=== PATIENT | female | born 1995 | race Caucasian/White ===

== ENCOUNTER 2023-05-15 21:29 | Outpatient (CLI) | payer OTHER, MEDICAID, SELFPAY ==
[2023-05-15 21:51] VITALS: BP 120/67; PULSE 88; PULSE 89; TEMP 36.8; O2SAT 95
--- NOTE | 2023-05-15 21:58 | CRLHL7_ITS ---
For Patients: As a result of the Cures Act, medical imaging exams and procedure reports are released immediately into your electronic medical record. You may view this report before your referring provider. If you have questions, please contact your health care provider. INDICATION: Decreased movement. LIMITED OBSTETRICAL ULTRASOUND FOR BIOPHYSICAL PROFILE Technique: Multiple transabdominal sonographic images of the gravid uterus were performed. Comparison: No previous comparison studies are currently available. Findings: There is a single, live, intrauterine gestation in vertex position. cardiac activity is present with a heart rate of 127 BPM. The placenta is posterior in position and there is no evidence of previa or abruption. Amniotic fluid volume appears subjectively normal and the single deepest pocket measures 4.4 centimeters. No breathing movements were observed. gross body movements, tone, and amniotic fluid are satisfactory. The resultant biophysical profile score is 6 out of 8. IMPRESSION: Single, live, intrauterine gestation in vertex position. Biophysical profile score is 6 out of 8, with points detracted for absent breathing movements. JERSON ALMARAZ MD [employer] Dictated by Raza Almaraz MD @ 05/16/2023 1:36:19 AM Dictated by: Raza Almaraz MD @ 05/16/2023 01:37:23 (Electronically Signed)
--- NOTE | 2023-05-15 23:58 | PC.OBNST ---
NST Note NST Note Start: 05/15/23 21:33 Freq: ONCE Status: Active Protocol: Document 05/15/23 23:57 JULIO (Rec: 05/15/23 23:58 JULIO [id number]) NST Note 9 Para (# of births) 4 EDC 07/07/23 Gestational Age In Weeks & Days 32 Weeks & 3 Days High Risk Factors Diabetes - Gestational Insulin Patient Presented with Complaint(s) of Decreased movement Reactive Yes Appropriate for Gestational Age Yes RN Satinder Avalos RN Date 05/15/23 Reactive Yes Appropriate for Gestational Age Yes HANNAH Peterson RN Date 05/15/23 OB NST charge Yes Complete NST Note via Write Note Yes The provider's electronic signature indicates the NST is reactive/appropriate for gestational age. *Note to provider: If an addendum is required, open the patient's chart and click on the note under the Nurse/Allied Health tab.
--- NOTE | 2023-06-03 14:37 | PC.OBNST ---
NST Note NST Note Start: 05/15/23 21:33 Freq: ONCE Status: Discharge Protocol: Document 05/15/23 23:57 JULIO (Rec: 05/15/23 23:58 JULIO [id number]) NST Note 9 Para (# of births) 4 EDC 07/07/23 Gestational Age In Weeks & Days 32 Weeks & 3 Days High Risk Factors Diabetes - Gestational Insulin Patient Presented with Complaint(s) of Decreased movement Reactive Yes Appropriate for Gestational Age Yes RN Satinder Avalos RN Date 05/15/23 Reactive Yes Appropriate for Gestational Age Yes HANNAH Peterson RN Date 05/15/23 OB NST charge Yes Complete NST Note via Write Note Yes The provider's electronic signature indicates the NST is reactive/appropriate for gestational age. *Note to provider: If an addendum is required, open the patient's chart and click on the note under the Nurse/Allied Health tab.
== END 2023-05-15 23:50 | disposition home or self-care (01) ==
LOC: OB OUT 21:30 → OB 21:30
PROVIDERS: PCP Family Medicine; Visit Provider Surgery
DX: O36.8190 Decreased fetal movements, unspecified trimester, not applicable or unspecified (principal)
CPT/HCPCS: 59025; 76819; 99213

== ENCOUNTER 2024-04-06 00:25 | Emergency (ER) | payer OTHER, MEDICAID, SELFPAY ==
[2024-04-06 00:32] VITALS: BP 109/87; PULSE 95; RESP 20; TEMP 37; O2SAT 97; BMI 31.0
--- NOTE | 2024-04-06 00:39 | ED_ITS ---
HPI - General Adult General Chief complaint: Extremity Pain/Injury, Upper Stated complaint: injured R hand Time Seen by Provider: 04/06/24 00:39 History of Present Illness HPI narrative: Patient c/o right 3rd finger injury. Patient hit her finger on her 's gutierrez at 2345 today. Patient took 600mg ibuprofen just prior to arrival and had ice on for 20 min. Patient denies previous injury to right 3rd finger. CMS intact. Patient states limited ROM. 28-year-old woman presenting to the emergency department with complaint of right 3rd finger pain. This night with a young child crying was trying to wake her to attend. Smacked his gutierrez and had tremendous pain in her finger. She has been icing and taking ibuprofen and still with a lot of pain. No other injuries. Related Data Home Medications ?Medication ?Instructions ?Recorded ?Confirmed doxylamine 10 mg-pyridoxine (vit 1 tab PO QPM PRN nausea/vomiting 05/15/23 04/06/24 B6) 10 mg tablet,delayed release insulin NPH isoph U-100 human 100 3 unit subcut QPM 05/15/23 04/06/24 unit/mL (3 mL) subcutaneous pen (Humulin N NPH U-100 Insulin KwikPen) Allergies Allergy/AdvReac Type Severity Reaction Status Date / Time NKDA Allergy Unknown Uncoded 04/06/24 10:56 Review of Systems Status of ROS: Reports: 6 or more systems reviewed and unremarkable except as noted in History and below [facility] Surgical History (Updated 04/06/24 @ 10:57 by Karen Aldrich ~ [facility]) History of cholecystectomy ?Z90.49 - Acquired absence of other specified parts of digestive tract (ICD- 10) Social History Smoking Status: Never smoker Do you use any of these nicotine containing products: None Second hand tobacco smoke exposure: No How often do you have a drink containing alcohol: never AUDIT-C Alcohol total score: 0 Non-prescribed substance use: denies use service: No Exam Narrative: Exam Narrative: Pleasant. Has been tearful. Clearly very uncomfortable, in intense pain. Eloise thing easily. Examination of the right hand with some swelling more notable of the middle phalanx and distal of the 3rd finger. Due to pain is not extending or flexing. Const: Vital Signs, click to edit/add: Vital Signs - 24 hr 04/06/24 00:32 Temperature 98.6 F Pulse Rate [Left P ulse Oximeter] 95 Respiratory Rate 20 Blood Pressure [Ri ght Upper Arm] 109/87 Pulse Oximetry 97 Oxygen Delivery Me thod Room Air Documenting provider has reviewed patient's vital signs: yes Course Vital Signs Vital signs: Initial Vital Signs Temperature 98.6 F 04/06/24 00:32 Temperature Source Temporal Artery Scan 04/06/24 00:32 Pulse Rate 95 04/06/24 00:32 Pulse Rhythm Regular 04/06/24 00:32 Respiratory Rate 20 04/06/24 00:32 Blood Pressure 109/87 04/06/24 00:32 Blood Pressure Mean 94 04/06/24 00:32 Blood Pressure Position Sitting 04/06/24 00:32 Pulse Oximetry 97 04/06/24 00:32 Oxygen Delivery Method Room Air 04/06/24 00:32 Vital Signs Temperature 98.6 F 04/06/24 00:32 Pulse Rate 95 04/06/24 00:32 Respiratory Rate 20 04/06/24 00:32 Blood Pressure 109/87 04/06/24 00:32 Pulse Oximetry 97 04/06/24 00:32 Oxygen Delivery Method Room Air 04/06/24 00:32 Temperature 98.6 F 04/06/24 00:32 Pulse Rate 95 04/06/24 00:32 Respiratory Rate 20 04/06/24 00:32 Blood Pressure 109/87 04/06/24 00:32 Pulse Oximetry 97 04/06/24 00:32 Oxygen Delivery Method Room Air 04/06/24 00:32 Medical Decision Making MDM Narrative Medical decision making narrative: There could have been an avulsion fracture here simply a contusion which would hurt as well. Other ligamentous disruption? Fracture elsewhere? . Will need x-ray. Due to pain did offer a digital and block; declined Right 3rd finger x-ray independently reviewed by me where there does appear to be an oblique fracture of the base of the distal phalanx with mild displacement with what might be some extension into the distal aspect of the middle p halanx/interphalangeal joint. Looks to be some comminution. Involvement of the distal aspect of the middle phalanx might be artifact? Radiology over-read below. Right long finger 3 views. Comparison: None. Findings/Impression: Acute, comminuted, slightly displaced fracture of the long finger distal phalanx base with likely extension into the distal interphalangeal joint. No involvement of the tuft. Soft tissue swelling about the long finger. No other significant bone or joint abnormality. Applied finger Stax splint. Might need more than this but this should protect it for now. See patient discharge plan for further discussion Please follow-up in a couple weeks to verify healing and consider working on mobility. If primary does orthopedics can follow up with them or otherwise with orthopedics locally phone number [phone]. Wear this finger Stax splint other than when icing most of the time until follow-up. Can take up to 800 mg of ibuprofen or up to 1000 mg of acetaminophen per dose. Can be combined. Elevate for comfort otherwise. Ice 2 - 3 times daily over the next few days. Medical Records Medical records reviewed: Yes I reviewed the patient's medical records Discharge Plan Discharge Clinical Impression: Fracture of distal phalanx of finger Patient Disposition: Home w/ Parent or Adult Condition: Stable Additional Instructions: Please follow-up in a couple weeks to verify healing and consider working on mobility. If primary does orthopedics can follow up with them or otherwise with orthopedics locally phone number [phone]. Wear this finger Stax splint other than when icing most of the time until follow-up. Can take up to 800 mg of ibuprofen or up to 1000 mg of acetaminophen per dose. Can be combined. Elevate for comfort otherwise. Ice 2 - 3 times daily over the next few days. Prescriptions: No Action Humulin N NPH Insulin KwikPen 100 unit/mL (3 mL) insulin pen 3 unit subcut QPM doxylamine-pyridoxine (vit B6) 10-10 mg tablet,delayed release (DR/EC) 1 tab PO QPM PRN (Reason: nausea/vomiting) Follow Up/Referrals: Provider,Not a Local [Primary Care Provider] - Stand Alone Forms: Querydayth Info Instructions
--- NOTE | 2024-04-06 00:49 | CRLHL7_ITS ---
For Patients: As a result of the Century Cures Act, medical imaging exams and procedure reports are released immediately into your electronic medical record. You may view this report before your referring provider. If you have questions, please contact your health care provider. Indication: Finger pain after impact. Technique: Right long finger 3 views. Comparison: None. Findings/Impression: Acute, comminuted, slightly displaced fracture of the long finger distal phalanx base with likely extension into the distal interphalangeal joint. No involvement of the tuft. Soft tissue swelling about the long finger. No other significant bone or joint abnormality. Dictated by Harry Jerome MD @ 04/06/2024 1:10:57 AM (Electronically Signed)
--- OUTSIDE RECORDS SUMMARY | 2024-04-06 01:11 | XMS_ITS | Encounter Summary ---
Author Organization [facility] Address [address] [place] [address] Care Team Providers Care Chip Unloader Name Role Phone No Ref-Primary, Physician Primary Care Provider Joslyn Oreilly MD Unavailable Katy Bravo MD Primary Care Provider [phone] Jessica EwingSW Unavailable Encounter Details Date Type Department Care Team (Late st Contact Info) Description 01/08/2021 External Order Results [facility] [address] [place] [address] Outside, Provider Social History Tobacco Use Types Packs/Day Years Used Date Smoking Tobacco: Never Smokeless Tobacco: Never Alcohol Use Standard Drinks/Week Comments No 0 (1 standard drink = 0.6 oz pur e alcohol) PHQ-2 Answer Date Recorded PHQ-2 Score 0 01/03/2019 Comments No Sex and Gender Information Value Date Recorded Sex Assigned at Female 06/09/2019 8:03 AM BOTTLE FILLER Legal Sex Female 4:50 AM BOTTLE FILLER Gender Identity Female 06/09/2019 8:03 AM BOTTLE FILLER Sexual Orientation Straight 06/09/2019 8: 03 AM BOTTLE FILLER documented as of this encounter Plan of Treatment Not on file documented as of this encounter Procedures Procedure Name Priority Date/Time Associated Diagnosis Comments EXTERNAL LAB RESULTS Routine 01/08/2021 11:27 AM CDT documented in this encounter Results * External Lab Results (01/08/2021 11:27 AM CDT) Scan Lab Results (External) See Scanned Report NON-INTERFACE D (ONBASE SCANS) Comment:HCG Beta Subunit, Qn t, Serum 01/08/2021 11:2 7 AM CDT Narrative ANNA PFT - 11/10/2021 11:28 AM CDT Verified by Shreya Mcginnis on 11/10/2021. us Provider Outside LABORATORY Edited Result - Final ANNA PFT NON-INTERFACED (ONBASE SCANS) documented in this encounter Visit Diagnoses Not on filedocumented in this encounter Care Teams Chip Unloader Relationship Specialty Start Date End Date No Ref-Primary, Physician PCP - General 11/08/12 10/29/21 Katy Bravo MD [address] [place] [address] PCP - General cardiology teacher 10/30/21 Joslyn Oreilly MD [facility] [address], [address] [place] [place] [id number] Assigned OBGYN Provider 05/11/21 Jessica Ewing, [facility] Clinic Head Filter Press Tender Primary Care - CC 06/11/23 documented as of this encounter
--- OUTSIDE RECORDS SUMMARY | 2024-04-06 01:11 | XMS_ITS | Referral Summary ---
Author Organization [facility] Address [address] [place] [address] Care Team Providers Care College Hire Name Role Phone Katy Bravo MD Primary Care Provider [phone] Allergies No known active allergies Medications Vit-Fe Fumarate-FA (PNV PLUS MULTIVITAMIN) 27-1 MG TABS per tablet Take 1 tablet by mouth daily Active NO ACTIVE MEDICATIONS 07/26/19 14 Discontinued( Stopped Prior to Admission or erroneus entry) levothyroxine (SYNTHROID/LEVO THROID) 50 MCG tablet Take 50 mcg by mouth daily 11/11/19 22 Discontinued( Stopped Prior to Admission or erroneus entry) Active Problems Problem Noted Date Diagnosed Date 06/30/2023 Encounter for triage in patient 023 Term 11/10/2021 Indication for care in labor and delivery, antep artum 04/21/2021 Indication for care in labor or delivery 020 Pain in joint involving pelvic region and thigh 08/25/2013 Dysuria 08/25/2013 Muscle spasm 08/25/2013 CARDIOVASCULAR SCREENING; LDL GOAL LESS THAN 160 Recurrent UTI Resolved Problems Problem Noted Date Diagnosed Date Resolved Date Acute cholecystitis 11/08/2012 11/09/19 13 Immunizations Name Administration Dates Next Due Influenza Vaccine >6 months,quad, PF 07/01/2023( ) TDAP (Adacel,Boostrix) 07/17/2015,01/05/2006 Social History Tobacco Use Types Packs/Day Years Used Date Smoking Tobacco: Never Smokeless Tobacco: Never Alcohol Use Standard Drinks/Week Comments No 0 (1 standard drink = 0.6 oz pur e alcohol) PHQ-2 Answer Date Recorded PHQ-2 Score 0 01/03/2019 [place] Depression Scale Answer Date Recorded Last EPDS Total Score Not on file 07/01/2023 The thought of harming myself has occurred to me . Never 07/01/2023 Adolescent Education Answer Date Record ed Getting School Help Needed Not on file 02/19 Comments No Sex and Gender Information Value Date Recorded Sex Assigned at Female 06/09/2019 8:03 AM FACILITY MANAGER HISTOLOGY Legal Sex Female 4:50 AM FACILITY MANAGER HISTOLOGY Gender Identity Female 06/09/2019 8:03 AM FACILITY MANAGER HISTOLOGY Sexual Orientation Straight 06/09/2019 8: 03 AM FACILITY MANAGER HISTOLOGY Last Filed Vital Signs Vital Sign Reading Time Taken Comments Blood Pressure 124/84 07/02/2023 7:52 AM FACILITY MANAGER HISTOLOGY Pulse 80 07/02/2023 7:52 AM FACILITY MANAGER HISTOLOGY Temperature 36.6 C (97.8 F) 07/02/2023 7:52 AM FACILITY MANAGER HISTOLOGY Respiratory Rate 16 07/02/2023 7:52 AM FACILITY MANAGER HISTOLOGY Oxygen Saturation 99% 11/11/2021 6:23 AM CDT Inhaled Oxygen Concentration - - Weight 101.7 kg (224 lb 4.8 oz) 024 10:32 AM FACILITY MANAGER HISTOLOGY Height 172.7 cm (5' 8) 06/30/2023 9:00 AM FACILITY MANAGER HISTOLOGY Body Mass Index 34.1 06/30/2023 9:00 AM FACILITY MANAGER HISTOLOGY Plan of Treatment Not on file Procedures Procedure Name Priority Date/Time Associated Diagnosis Comments HIV 1&2 ANTIBODY (EXTERNAL RESULT) Routine 11/23/2022 from Last 3 Months or Most Recently Relevant to Health Maintenance Results * HIV-1 Antibody (External Result) (11/23/2022) HIV 1&2 Antibody (External) Nonreactive Nonreactive EXTERNAL LAB us Patient Reported LAB - HIM EXTERNAL RESULT Final Result EXTERNAL LAB External Lab from Last 3 Months or Most Recently Relevant to Health Maintenance Insurance [employer] [place] [employer] [place] Advance Directives For more information, please contact: [phone] * Full Code (Latest Code Status on File) Date Activated Date Inactivated Comments 06/30/2023 8:40 AM 06/30/2023 3:40 PM All basic an d advanced life-sustaining interventions are performed as appropriate Question Answer Comments Code status determined by: Discussion with patie nt/ legal decision maker * Full Code Date Activated Date Inactivated Comments 11/10/2021 7:55 AM 11/11/2021 7:55 PM All basic an d advanced life-sustaining interventions are performed as appropriate Question Answer Comments Code status determined by: Discussion with patie nt/ legal decision maker * Full Code Date Activated Date Inactivated Comments 11/08/2012 5:18 PM 11/09/2012 12:36 PM * Full Code Date Activated Date Inactivated Comments 11/08/2012 8:25 AM 11/08/2012 5:18 PM Care Teams College Hire Relationship Specialty Start Date End Date Katy Bravo MD [address] [place] [address] [facility] - General paver 10/30/21
--- OUTSIDE RECORDS SUMMARY | 2024-04-06 01:11 | XMS_ITS | Clinical Summary ---
Author Organization [facility] Address [place], [place] [address] Care Team Providers Care Directory Carrier Name Role Phone Clinic, [facility] Primary Care Pr ovider Allergies Active Allergy Reactions Criticality Noted Date Comments Blood-Group Specific Substance Other - Describe In Comment Field 12/29/2018 Patient has a probable passive anti-D antibody. Blood products may be delayed. Draw patient 24 hours prior to transfusion. Draw one red top and two purple top tubes for all type and screen orders. Medications Medication Sig Dispensed Refills Start Date End Date Status 25/iron fum/folic/dha (-1 ORAL) Take by mouth. Act anthony ondansetron (ZOFRAN ODT) 8 mg disintegrating tabletIndications:Non-i ntractable vomiting with nausea, unspecified vomiting type Place 1 tablet on the tongue 2 times daily. 30 tablet 1 04/14/2020 Active Active Problems No known active problems Immunizations Name Administration Dates Next Due Human Papilloma Virus Vaccine 12/02/2009 MMR 09/16/2015 Meningococcal Vaccine (Menactra) 12/02/2009 Tdap 07/17/2015,01/05/2006 Family History Medical History Relation Name Comments Cancer Maternal Grandfather Relation Name Status Comments Brother 1 Alive Brother 2 Alive Father Alive Maternal Grandfather Maternal Grandmother Alive Mother Alive Paternal Grandfather Paternal Grandmother Sister 1 Alive Sister 2 Alive Social History Tobacco Use Types Packs/Day Years Used Date Smoking Tobacco: Never Smokeless Tobacco: Never Tobacco Cessation:Counseling Given: Yes Alcohol Use Standard Drinks/Week Comments No 0 (1 standard drink = 0.6 oz pur e alcohol) Humiliation, Afraid, Rape, and Kick questionnair e Answer Date Recorded Fear of Current or Ex-Partner No Emotionally Abused No 12/19/2018 Physically Abused No 12/19/2018 Sexually Abused No 12/19/2018 PHQ-2 Answer Date Recorded PHQ-2 Score 2 12/28/2018 [facility] - Occupational Stress Questionnaire Answer Date Recorded Feeling of Stress Very much 12/19/2018 Exercise Vital Sign Answer Date Recorde d Days of Exercise per Week 5 days 2018 Minutes of Exercise per Session 30 min 12/19/2018 Sex and Gender Information Value Date Recorded Sex Assigned at Not on file Gender Identity Not on file Sexual Orientation Not on file Obstetrics History Para Term AB IAB SAB Ectopic Multiple Livin g Live Births 5 2 2 2 2 2 2 Date Outcome GA Total Labor Labor//3rd Weight Sex Type Anes PTL Maty A1 A5 Name Clin Term SAB SAB 016 Term 38w 0d F Vag IV Meds Livin g Scarle tt Complications:None Delivery Location:[place], [place] Last Filed Vital Signs Vital Sign Reading Time Taken Comments Blood Pressure 118/72 01/18/2019 1:40 PM CDT Pulse 88 01/18/2019 1:40 PM CDT Temperature 36.3 C (97.3 F) 01/13/2019 10:35 PM CDT Respiratory Rate 18 01/18/2019 1:40 PM CDT Oxygen Saturation 97% 01/13/2019 10:35 PM CDT Inhaled Oxygen Concentration - - Weight 87.8 kg (193 lb 8 oz) 01/13/2019 10:35 PM CDT Height 172.7 cm (5' 8) 01/13/2019 10:35 PM CDT Body Mass Index 29.42 01/13/2019 10:35 PM CDT Plan of Treatment Health Maintenance Due Date Last Done Comments BMI (ht and wt on same day) for age 18+ 12/29/2019 12/28/2018, 11/04/2018 Depression screening for age 12+ 12/30/2019 12/29/2018, 12/29/2018, 12/28/2018, Additional history exists Pap test for age 21-65 10/04/2021 9 (Completed outside of [facility]) COVID-19 vaccine series (2023-25 season) 2024 Influenza for age 9-49 01/16/2024 Tetanus booster 07/16/2025 07/17/2015, 01/05/2006 Tdap Completed 07/17/2015, 01/05/2006 HIV for age 15-65 Completed 12/29/2018 Hepatitis C screening for age 18-79 Completed 12/29/2018 Pneumococcal series for age 6-64 Aged Out No longer eligible based on patient's age to complete this topic Procedures Procedure Name Priority Date/Time Associated Diagnosis Comments ANTI HIV 1/2 Routine 12/29/2018 8:07 AM CDT , unspecified gestational age ANTI HCV Routine 12/29/2018 8:07 AM CDT , unspecified gestational age from Last 3 Months or Most Recently Relevant to Health Maintenance Results * ANTI HCV (12/29/2018 8:07 AM CDT) HEPATITIS C ANTIBODY Non-React anthony Non-React anthony 12/29/2018 6:33 PM CDT [facility] Comment:Antibodies to HCV no t detected; does not exclude the possibility of exposure to HCV. Blood BLOOD SPECIMEN / Unknown Venipuncture / Unknown 12/29/2018 8:07 AM CDT 12/29/2018 8:09 AM CDT Zee Blandon MD [facility] [address] [place] [address], * ANTI HIV 1/2 (12/29/2018 8:07 AM CDT) HIV-1/HIV-2 ANTIBODY Non-Reacti ve Non-Reacti ve 12/29/2018 5:49 PM CDT [facility] Comment:HIV-1 p24 and HIV-1/ HIV-2 Ab not detected. Blood BLOOD SPECIMEN / Unknown Venipuncture / Unknown 12/29/2018 8:07 AM CDT 12/29/2018 8:09 AM CDT Zee Blandon MD [facility] [address] [place] [address], [place] from Last 3 Months or Most Recently Relevant to Health Maintenance Advance Directives * Full Code (Latest Code Status on File) Date Activated Date Inactivated Comments 07/11/2017 8:23 PM 07/12/2017 7:41 AM * Full Code Date Activated Date Inactivated Comments 06/08/2017 5:58 PM 06/08/2017 11:34 PM Care Teams Directory Carrier Relationship Specialty Start Date End Date Clinic, [facility] [address] [place] [address] PCP - General 12/27/23
--- OUTSIDE RECORDS SUMMARY | 2024-04-06 01:11 | XMS_ITS | Encounter Summary ---
Author Organization [facility] Address [address] [place] [address] Care Team Providers Care Coin Box Inspector Name Role Phone No Ref-Primary, Physician Primary Care Provider Sheila Do MD Unavailable Unavaila Joslyn Marino MD Unavailable Katy Bravo MD Primary Care Provider [phone] Jessica Ewing Unavailable Reason for Visit * Reason Onset Date Comments Appointment 12/19/2018 Appointment need ed for new visit Encounter Details Date Type Department Care Team (Late st Contact Info) Description 12/19/2018 Telephone [facility] [place] [address] [place] [phone] Kemal Ziegler MD [address] [place] [address] Appointment (Appointment needed for new visit ) Social History Tobacco Use Types Packs/Day Years Used Date Smoking Tobacco: Never Smokeless Tobacco: Never Alcohol Use Standard Drinks/Week Comments No 0 (1 standard drink = 0.6 oz pur e alcohol) Comments Yes Sex and Gender Information Value Date Recorded Sex Assigned at Female 06/09/2019 8:03 AM SCHEDULING ANALYST Legal Sex Female 4:50 AM SCHEDULING ANALYST Gender Identity Female 06/09/2019 8:03 AM SCHEDULING ANALYST Sexual Orientation Straight 06/09/2019 8: 03 AM SCHEDULING ANALYST documented as of this encounter Miscellaneous Notes * Telephone Encounter - Eliseo Byers - 12/19/2018 6:08 PM CDT Reason for call: Other Patient called regarding (reason for call): appointment Additional comments: Patient is requesting a new visit for at the [facility] to be seen with either OB Kemal Ziegler or OB Chin Dang . Patient has already been seen at another clinic for her confirmation. Phone number to reach patient: Home number on file [phone] (home) Best Time: ANYTIME Can we leave a detailed message on this number? YES documented in this encounter Plan of Treatment Not on file documented as of this encounter Visit Diagnoses Not on filedocumented in this encounter Care Teams Coin Box Inspector Relationship Specialty Start Date End Date No Ref-Primary, Physician PCP - General 11/08/12 10/29/21 Katy Bravo MD [address] [place] [address] PCP - General typewriter operator automatic 10/30/21 Sheila Do MD Assigned OBGYN Provider 03/08/20 12/14/20 Joslyn Oreilly MD [facility] [address], [address] [place] [id number] Assigned OBGYN Provider 05/11/21 Jessica Ewing LICSW [facility] Agricultural Produce Sorter Primary Care - CC 06/11/23 documented as of this encounter
--- OUTSIDE RECORDS SUMMARY | 2024-04-06 01:11 | XMS_ITS | Clinical Summary ---
Author Organization [facility] Address [address] [place] [address] Care Team Providers Care Legal Word Processor Name Role Phone Katherine Meadows MD Primary Care Provider Source Comments You are receiving this document as you are listed as the primary care provider,follow-up provider, or the patient has been referred to you for consultation.This is in compliance with the Medicare and[facility] EHR Incentive Program,which states Providers who transition their patient to another setting of careor provider of care or refers their patient to another provider of care shouldprovide summary care record for each transition of care or referral. [facility] Allergies No known active allergies Medications Medication Sig Dispensed Refills Start Date End Date Status tretinoin (AKA RETIN-A) 0.025 % creamIndications :Acne vulgaris Apply 1 Application topically nightly. Apply to cleansed and dried skin. 45 g 1 08/23/2014 Active Clindamycin Phos & Cleanser (CLINDACIN ETZ) 1 % KITIndications:A cne, unspecified acne type Apply 1 Application topically every morning. 60 each 1 09/14/2014 Active sertraline (AKA ZOLOFT) 100 MG tabletIndication s:Depression, major, recurrent, moderate (HRC),GARY (generalized anxiety disorder) (HRC) Take 1.5 tablets by mouth daily (every 24 hours). Indications: ANXIETY WITH DEPRESSION 135 tablet 3 11/10/2014 Active vitamin-ferrous fumarate-folic acid (PRENATALPLUS) 27-1 MG tablet Take 1 Tablet by mouth daily. Active clindamycin (CLINDAGEL) 1 % gelIndications:t oo greasy in texture Apply 1 Application topically every morning. 60 g 1 08/23/2014 5 Discontinued( Change Existing Dose/Freq) Active Problems Problem Noted Date Diagnosed Date care, subsequent 10/06/2018 Blood type, Rh negative 10/06/2018 Overview (10/06/2018): Had Rhogam 09/26/18 at [facility] due to early spotting Hx of macrosomia in infant i n prior , currently 10/06/2018 Overview (10/06/2018): Last baby weighed 10-14 at term; patient reports no shoulder issues Depression, major, recurrent, moderate 5 GARY (generalized anxiety disorder) 09/15/2014 Terminal insomnia 09/15/2014 Encounters Date Type Department Care Team Description 02/07/2024 Notes/Orders [facility] [address] [place] [address] Richmond Love MD Routine medical exam 02/07/2024 Notes/Orders [facility] [address] [place] [address] Richmond Love MD Routine medical exam from Last 3 Months Immunizations Name Administration Dates Next Due 4vHPV (Gardasil) 12/02/2009,12/02/2009 Hepatitis B - Surface Antibody Positive 10/07/19 19 MCV4 (Menactra) 12/02/2009,12/02/2009 Positive Rubella Titer 10/06/2018 TDAP (BOOSTRIX) 01/05/2006 Tdap 01/05/2006 Family History Medical History Relation Name Comments Depression Father High Cholesterol Father Diabetes Mother Cancer, Breast Negative Family History Cancer, Colon Negative Family History Relation Name Status Comments Father Alive Mother Alive Brother Alive Maternal Grandfather Maternal Grandmother Alive Paternal Grandfather Paternal Grandmother Sister 1 Alive Sister 2 Alive Sister 3 Alive Social History Tobacco Use Types Packs/Day Years Used Date Smoking Tobacco: Never Smokeless Tobacco: Never Alcohol Use Standard Drinks/Week Comments No 0 (1 standard drink = 0.6 oz pur e alcohol) Sex and Gender Information Value Date Recorded Sex Assigned at Not on file Gender Identity Not on file Sexual Orientation Not on file Last Filed Vital Signs Vital Sign Reading Time Taken Comments Blood Pressure 97/63 10/18/2018 1:50 PM CDT Pulse 80 10/18/2018 1:50 PM CDT Temperature 36.9 C (98.4 F) 11/18/2012 2:22 PM CDT Respiratory Rate - - Oxygen Saturation - - Inhaled Oxygen Concentration - - Weight 86.2 kg (190 lb) 10/18/2018 1:50 PM CDT Height 172.7 cm (5' 8) 10/06/2018 9:17 AM CDT Body Mass Index 28.89 10/06/2018 9:17 AM CDT Plan of Treatment Health Maintenance Due Date Last Done Comments Hep C Screening (Preventive Services) 1993 HPV Vaccine (2 - 3-dose series) 12/30/2009 12/02/2009, 12/02/2009 Adult Preventive Visit 07/24/2011 DTaP/Tdap/Td (2 - Tdap) 01/06/2016 01/06/20 06, 01/05/2006 Cervical Cancer Screening 10/06/20212018, 08/23/2014 COVID-19 Vaccine (2023-2 5 season) 2024 Influenza (#1) 2024 Zoster/Shingles (1 of 2) 07/24/2043 MCV4 Completed 12/02/2009, 12/02/2009 HIV Screening (Preventive Services) Completed 10/06/2018 HepA Aged Out No longer eligi ble based on patient's age to complete this topic Hib Aged Out No longer eligi ble based on patient's age to complete this topic IPV (Polio) Aged Out No longer eligi ble based on patient's age to complete this topic RSV Aged Out No longer eligi ble based on patient's age to complete this topic Pneumococcal Aged Out No longer eligi ble based on patient's age to complete this topic Procedures Procedure Name Priority Date/Time Associated Diagnosis Comments PAP TEST Routine 10/06/2018 11:18 AM CDT Screening for malignant neoplasm of cervix HIV 1/2 AG/AB 4TH GEN Routine 10/06/2018 10:21 AM CDT care of multigravida, antepartum from Last 3 Months or Most Recently Relevant to Health Maintenance Results * PAP Test (10/06/2018 11:18 AM CDT) Case Report Pap Case: [id number] Authorizing Provider: Teja Cartwright APRN, Collected: 10/06/2018 11:18 AM [place] Ordering Location: [place] [facility] and Received: 10/06/2018 11:55 AM [facility] Screen: Yissel Mathur Specimen: Pap Test, Routine, Cervix/Endocervix 10/18/2018 10:46 AM [facility] Pap Specimen Adequacy Satisfactory for evaluation, endocervical/yan sformation zone component present. 10/18/2018 10:46 AM [facility] Pap Interpretation Negative for intraepithelial lesion or malignancy (NILM). 10/18/2018 10:46 AM [facility] Gross Description The specimen is received in SurePath fixative and properly labeled. 1 Pap-stained SurePath slide is prepared. 10/18/2018 10:46 AM [facility] Pap Disclaimer The Pap test is a screening test designed to aid in the detection of cervical cancer and its precursor lesions. It is not a diagnostic procedure and should not be used as the sole means of detecting cervical cancer. Both false-positive and false-negative reports may occur. 10/18/2018 10:46 AM [facility] Embedded Images 10:46 AM [facility] Other Specimen Type ENTIRE ENDOCERVIX / Unknown 10/06/2018 11:18 AM CDT 10/06/2018 11:55 AM CDT Comment:LMP: Patient's last menstrual period was 08/28/2018 (approximate). Teja Cartwright APRN, [place] [address], [facility] [phone] * HIV 1/2 AG/AB 4TH GEN (10/06/2018 10:21 AM CDT) HIV 1/2 Antigen/Anti body (4th generation) Negative (Non Reactive) Negative (Non Reactive) 10/06/2018 3:43 PM CDT [facility] Comment:HIV-1 p24 Antigen an d HIV-1/HIV-2 Antibody not detected Blood Venipuncture / Unknown 10/06/2018 10:21 AM CDT 10/06/2018 10:21 AM CDT Teja Cartwright APRN, CNM LAB_1 [facility] [address] [phone] from Last 3 Months or Most Recently Relevant to Health Maintenance Care Teams Legal Word Processor Relationship Specialty [place] [address] [address] [place] [address] [facility] - General 08/10/13
--- OUTSIDE RECORDS SUMMARY | 2024-04-06 01:11 | XMS_ITS | Clinical Summary ---
Author Organization [facility] [employer] [facility] Address [address] [place] [address] [address] [place] [address] Care Team Providers Care Book Sewer Name Role Phone Provider, No Attributed RESOURCE Unavailable Unavailable Allergies No known active allergies Medications Vit-Fe Fumarate-FA ( VITAMIN, WITH FOLIC ACID 0.8 MG,) 27-0.8 MG TABS Take 1 tablet by mouth Active fluconazole (DIFLUCAN) 150 mg tabletIndicatio ns:Yeast infection Take 1 tablet (150 mg) by mouth 1 time per day 1 tablet 02/15/2017 Active doxylamine-pyri doxine (DICLEGIS) 10-10 MG tablet (delayed release)Indicat ions:Nausea/vom iting in ([facility]) 2 tablets po at bedtime for 15 days, then add 1 po in morning, 1 po at noon if needed 120 tablet 03/12/2017 Active Active Problems Problem Noted Date Diagnosed Date Supervision of normal first , antepartu m ([facility]) 01/11/2017 Nausea/vomiting in ([facility]) 7 Miscarriage ([facility]) 10/26/2016 Rh negative state in antepartum period ([facility]) 10/26/2016 Labor and delivery, indication for care ([facility] ) 09/14/2015 Overview (09/17/2015): Admission 09/14/2015 Magali Webb is a 20yr old female T0 S0 E0 M0 L0 Estimated Date of Delivery: 5/13/16 GA: 38w2d. Admitted for SROM. GBS: negative. Cytotec 50 mcg at 8 pm. Pt progressed to of female at 0250 on September 15, 2015. Wt = 7 lb 14 oz. Apgars = 8 and 9. Bilateral periurethral lacerations without repair. Left vaginal laceration repaired with 3-0 vicryl interrupted sutures for hemostasis and approximation. EBL = 400 cc. . 09/16/2015- PPD #1- Doing well. Baby nursing well when awake. Continue routine care. 09/17/2015- PPD #2- Doing well. Nursing going well. Excited to go home today. Discharge instructions reviewed. RTC 2 weeks. Resolved Problems Problem Noted Date Diagnosed Date Resolved Date Hyperemesis affecting pregna ncy, antepartum ([facility]) 02/19/2015 10/26/2016 Overview (02/19/2015): She was in triage for fluid hydration twice last week and again today. She does well for about two days at home and then gets worse. Encounter for care in first trimester of first ([facility]) 02/13/2015 0 10/26/2016 Immunizations Immunization Administration Dates Next Due FLU VACCINE SINGLE DOSE 0.5mL(6MO+Fluzone/Flulaval/Fluarix,3YR+Afluria) 04/02/2015 MMR 09/16/2015 TDAP 07/17/2015 Family History Medical History Relation Comments Other Cousin lupus Hyperlipidemia Father Mental Illness Father Bi Polar Other Maternal Aunt 1 lupus Other Maternal Aunt 2 lupus Not otherwise listed - Cancer Maternal Aunt 3 me sothemioma Loss Maternal Aunt 4 Chronic Obstructive Pulmonary Disease Maternal G randfather Not otherwise listed - Cancer Maternal Grandfath er lung Diabetes Mother type 2 Loss Mother Thyroid Mother Not otherwise listed - Cancer Paternal Uncle 1 l she and bones Other Paternal Uncle 2 had shock ther apy Not otherwise listed - Cancer Paternal Uncle 3 Relation Status Comments Brother Alive Cousin Daughter Alive Father Alive Maternal Aunt 1 Maternal Aunt 2 Maternal Aunt 3 Maternal Aunt 4 Maternal Grandfather Mother Alive Paternal Uncle 1 Paternal Uncle 2 Paternal Uncle 3 Sister 1 Alive Sister 2 Alive Sister 3 Alive Social History Tobacco Use Types Packs/Day Years Used Date Smoking Tobacco: Never Smokeless Tobacco: Never Alcohol Use Standard Drinks/Week Comments No 0 (1 standard drink = 0.6 oz pur e alcohol) Sexually Active Control Partners Comments Yes None Male Comments No Sex and Gender Information Value Date Recorded Sex Assigned at Not on file Legal Sex Female 12:44 PM CDT Gender Identity Not on file Sexual Orientation Not on file Last Filed Vital Signs Vital Sign Reading Time Taken Comments Blood Pressure 98/62 02/12/2017 10:23 AM CDT Pulse 70 02/12/2017 10:23 AM CDT Temperature 36.9 C (98.4 F) 02/12/2017 10:23 AM CDT Respiratory Rate 16 02/12/2017 10:23 AM CDT Oxygen Saturation 97% 10/24/2016 4:30 PM CDT Inhaled Oxygen Concentration - - Weight 79.8 kg (176 lb) 02/12/2017 10:23 AM CDT Height 172.7 cm (5' 8) 09/14/2015 6:40 PM CDT Body Mass Index 26.76 09/14/2015 6:40 PM CDT Plan of Treatment Health Maintenance Due Date Last Done Comments Hepatitis C Screening 1993 Hepatitis B Vaccine (1 of 3 - 19+ 3-dose series) 2012 Lipid Screening 2014 Pap Smear 02/13/2020 02/12/2017 HPV 27-45yr Vaccine (1 - 3-DOSE SERIES) 2020 Covid-19 Vaccine (1 - 2023- season) 2024 Influenza Vaccine (#1) 2024 04/02/2015 TDAP/TD VACCINE (2 - Td or Tdap) 07/16/2025 07/17/2015 HIV One Time Screening Ages 15-65 Completed 02/12/2017, 02/12/2017, 03/19/2015, Additional history exists Pneumococcal Vaccine (0-5yr; and At-risk 6-64 yr) Aged Out No longer eligible based on patient's age to complete this topic Procedures Procedure Name Priority Date/Time Associated Diagnosis Comments OBSTETRICS PANEL 11 Routine 02/12/2017 1 1:12 AM CDT screening encounter PAP SMEAR (NONMEDICARE) Routine 02/12/2017 12:00 AM CDT Cervical cancer screening from Last 3 Months or Most Recently Relevant to Health Maintenance Results * PAP SMEAR (NONMEDICARE) (02/12/2017 12:00 AM CDT) Not Applicable 02/12/2017 02/15/2017 Narrative LAB - 02/18/2017 12:51 PM CDT Patient Name: MAGALI WEBB Physician(s): GABBY WARREN MD Collected: 02/12/2017 Received: 02/15/2017 Reported: 02/18/2017 CYTOPATHOLOGY PLASTIC JIG AND FIXTURE BUILDER REPORT INTERPRETATION Pap Smear VCE - Imaged ThinPrep: NEGATIVE FOR INTRAEPITHELIAL LESION OR MALIGNANCY FUNGAL ORGANISMS CONSISTENT WITH KAY SPECIES PRESENT (CLINICAL CORRELATION SUGGESTED). MARKED ACUTE INFLAMMATION (AND ASSOCIATED CHANGES). ENDOCERVICAL CELLS/COMPONENT PRESENT. SATISFACTORY SPECIMEN FOR EVALUATION. Electronically Signed Out By kks/02/18/2017 [facility](AS[facility]) The Pap test is a screening procedure and, as such, is subject to both false positive and false negative results as evidenced by published data. It is not a diagnostic test and results should be interpreted in the context of the patient's history and other clinical findings. Obtaining periodic Pap tests may help to minimize the consequences of any false negatives that may occur. [facility] [id number] [address] [place] [address] Copy To: SPECIMEN(S) RECEIVED: Pap Smear VCE - Imaged ThinPrep CLINICAL HISTORY: Date of Last Menstrual Period: 11/24/2016 Menstrual History: : OTHER Napoleon Warren MD PATHOLOGY Edited Resul t - Final LAB from Last 3 Months or Most Recently Relevant to Health Maintenance Advance Directives For more information, please contact: [phone] * Full Code (Latest Code Status on File) Date Activated Date Inactivated Comments 09/14/2015 7:15 PM 09/17/2015 5:28 PM * Full Code Date Activated Date Inactivated Comments 02/19/2015 3:50 PM 02/20/2015 5:10 AM Care Teams Book Sewer Relationship Specialty Start Date End Date Provider, No Attributed, RESOURCE [address] PCP - Attributed Provider 12/25/19
--- OUTSIDE RECORDS SUMMARY | 2024-04-06 01:11 | XMS_ITS | Encounter Summary ---
Author Organization On license of [facility] Address [address] [place] [address] Care Team Providers Care Loom Operator Apprentice Name Role Phone Katherine Meadows MD Primary Care Provider Encounter Details Date Type Department Care Team (Late st Contact Info) Description 02/07/2024 Notes/Orders [facility] [address] [place] [address] Richmond Love MD [address] [place] [id number] Routine medical exam Social History Tobacco Use Types Packs/Day Years Used Date Smoking Tobacco: Never Smokeless Tobacco: Never Alcohol Use Standard Drinks/Week Comments No 0 (1 standard drink = 0.6 oz pur e alcohol) Sex and Gender Information Value Date Recorded Sex Assigned at Not on file Gender Identity Not on file Sexual Orientation Not on file documented as of this encounter Plan of Treatment Scheduled Orders Name Type Priority Associated Diagnoses Orde r Schedule DNA Analysis Discrete Sequence Variation Panel (Blood) (Initial) Lab Routine Routine medical exam Expected: 02/07/2024 (Approximate), Expires: 08/06/2024 documented as of this encounter Visit Diagnoses Diagnosis Routine medical exam Routine general medical examination at a health care facility documented in this encounter Care Teams Loom Operator Apprentice Relationship Specialty Start [place] [address] [address] [place] [address] PCP - General 08/10/13 documented as of this encounter
--- OUTSIDE RECORDS SUMMARY | 2024-04-06 01:11 | XMS_ITS | Clinical Summary ---
Author Organization [facility] Address [address] [place] [address] Care Team Providers Care Epic Specialist Name Role Phone Katy Bravo MD Primary Care Provider [phone] Allergies No known active allergies Medications Vit-Fe [...] months,quad, PF 07/01/2023( ) TDAP (Adacel,Boostrix) 07/17/2015,01/05/2006 Family History Medical History Relation Comments Lipids Father Depression Mother Diabetes Mother Relation Status Comments Brother Alive Father Alive Maternal Grandfather Alive Maternal Grandmother Alive Mother Alive Paternal Grandfather Paternal Grandmother Alive Sister 1 Alive Sister 2 Alive Sister 3 Alive Social History Tobacco Use Types Packs/Day Years Used Date Smoking Tobacco: Never Smokeless Tobacco: Never Alcohol Use Standard Drinks/Week Comments No 0 (1 standard drink = 0.6 oz pur e alcohol) PHQ-2 Answer Date Recorded PHQ-2 Score 0 01/03/2019 Hamilton Depression Scale Answer Date Recorded Last EPDS Total Score Not on file 07/01/2023 The thought of harming myself has occurred to me . Never 07/01/2023 Adolescent Education Answer Date Record ed Getting School Help Needed Not on file 02/19 Comments No Sex and Gender Information Value Date Recorded Sex Assigned at Female 06/09/2019 8:03 AM LUMBER HACKER Legal Sex Female 4:50 AM LUMBER HACKER Gender Identity Female 06/09/2019 8:03 AM LUMBER HACKER Sexual Orientation Straight 06/09/2019 8: 03 AM LUMBER HACKER Last Filed Vital Signs Vital Sign Reading Time Taken Comments Blood Pressure 124/84 07/02/2023 7:52 AM LUMBER HACKER Pulse 80 07/02/2023 7:52 AM LUMBER HACKER Temperature 36.6 C (97.8 F) 07/02/2023 7:52 AM LUMBER HACKER Respiratory Rate 16 07/02/2023 7:52 AM LUMBER HACKER Oxygen Saturation 99% 11/11/2021 6:23 AM CDT Inhaled Oxygen Concentration - - Weight 101.7 kg (224 lb 4.8 oz) 024 10:32 AM LUMBER HACKER Height 172.7 cm (5' 8) 06/30/2023 9:00 AM LUMBER HACKER Body Mass Index 34.1 06/30/2023 9:00 AM LUMBER HACKER Plan of Treatment Health Maintenance Due Date Last Done Comments ADVANCE CARE PLANNING 1993 ANNUAL REVIEW OF HM ORDERS 1993 YEARLY PREVENTIVE VISIT 1993 HPV IMMUNIZATION (2 - 3-dose series) 12/30/2009 12/02/2009 HEPATITIS C SCREENING 07/24/2011 HEPATITIS B IMMUNIZATION (1 of 3 - 19+ 3-dose series) 2012 PAP 10/06/2021 10/06/2018 PHQ-2 (once per calendar year) 2023 01/03/2019 COVID-19 Vaccine (3 - 2023-2 5 season) 2024 02/27/2021, 01/25/2021 INFLUENZA VACCINE (#1) 2024 04/02/2015 DTAP/TDAP/TD IMMUNIZATION (3 - Td or Tdap) 07/16/2025 07/17/2015, 01/05/2006 RSV VACCINE (1 - 1-dose 75+ series) 2068 MENINGITIS IMMUNIZATION Completed 12/02/2009 HIV SCREENING Completed 11/23/2022, 11/10/2021 Pneumococcal Vaccine: Pediatrics (0 to 5 Years) and At-Risk Patients (6 to 64 Years) Aged Out No longer eligible b ased on patient's age to complete this topic RSV MONOCLONAL ANTIBODY Aged Out No l onger eligible based on patient's age to complete [...] Most Recently Relevant to Health Maintenance Insurance [employer] [place]ID [place] [facility] MEDICAID [place] Advance Directives For more information, please contact: [phone] * Full Code (Latest Code Status on [...] 8:25 AM 11/08/2012 5:18 PM Care Teams Epic Specialist Relationship Specialty Start Date End Date Katy Bravo MD [address] [place] [address] PCP - General professor of family medicine 10/30/21
--- OUTSIDE RECORDS SUMMARY | 2024-04-06 01:11 | XMS_ITS | Encounter Summary ---
Author Organization [facility] Address [address] [place] [address] Care Team Providers Care Bridge Welder Name Role Phone Katherine Meadows MD Primary Care Provider Encounter Details Date Type Department Care Team (Late st Contact Info) Description 02/07/2024 Notes/Orders [facility] [address] [place] [address] Richmond Love MD [address] [place] [address] Routine medical exam Social History Tobacco Use [...] facility documented in this encounter Care Teams Bridge Welder Relationship Specialty [place] [address] [place] [address] PCP - General 08/10/13 documented as of this encounter
== END 2024-04-06 01:29 | disposition home or self-care (01) ==
PROVIDERS: Emergency Provider Family Medicine
DX: S62.662A Nondisplaced fracture of distal phalanx of right middle finger, initial encounter for closed fracture (principal); W22.8XXA Striking against or struck by other objects, initial encounter
CPT/HCPCS: 29130; 73140; 99283; 99284

== ENCOUNTER 2024-04-07 14:12 | Outpatient (RCR) | payer OTHER, MEDICAID, SELFPAY ==
--- NOTE | 2024-04-07 16:49 | OT.OPOE ---
OT Outpatient Ortho Eval OT Outpatient Ortho Eval* Start: 04/07/24 16:17 Freq: Status: Active Protocol: Document 04/07/24 16:18 LCN (Rec: 04/07/24 16:46 LCN [id number]) E-signed By Luz Marina Kramer, OTR/L, CLT OT OP Ortho Eval Details Complexity Complexity Low Insurance Information Insurance Information [facility],Medicaid Outpatient History/Precautions Current Condition/Medical Diagnosis Referring Provider Antonio Curtis Medical Diagnoses R middle finger, acute displaced fracture of distal phlaanx of R middle finger Treatment Diagnosis edema , pain R middle finger Date of Onset 04/05/24 Other Conditions Pt healthy, no known medications Medical/Functional History Medical History Reviewed Yes: Ortho notes reviewed Prior Level of Function/Mobility Pt lives locally with her supportive , who works in [employer]. She is at home with their 5 children (aged 8, 6.4.2 and 9 months). 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 Social History Critical Job Demands Pull,Lift,Overhead Reach Other Critical Job Demands (Home with her children) Ortho Subjective Subjective Subjective Magali Jackie Webb is an active 28 y/o female who accidently knocked into her 's leg while sleeping and had immediate sharp pain. Found to have acute displaced fracture of distal phalanx of R middle finger and was splinted with her appt with Dr Jhoana Curtis 04/06/24 and sent to OT for custom orthoplast splinting to support better protection of her hand as it heals; she has very active young children and she has already bumped her DIP tip 3 x since the last clinic visit. Pain Assessment Pain Pain Yes Pain Comments 5/10 R middle finger Range of Motion and Strength Hand/Finger/Thumb Range of Motion and Strength Hand/Finger/Thumb Range of Motion and R MF MCP 10 to 75 ( edema), Strength PIP to 80 of 110. R IF, RF make contact tip to palm, restricted by digit edema. TH WNL. Wrist WNL. EDEMA moderate with blotchy purple bruising on MF, skin distended, loss of knuckle creases. RF and IF linda along digit shat with stiffness. SPLINTING-- OTR [employer] CUSTOM ORTHOPLAST HAND/WEB BASED SPLINT WITH RF, MF STAFFORD, WITH MCP AT 45, DIP/PIP FULLY EXTENDED, ADDED CLAM SHELL OVER THE FINGER STAFFORD FOR EXTRA PROTECTION. SECURED WITH VELCRO. OT Problems Problems Problems Decreased Strength,Decreased Range of Motion,Pain Assessment Assessment Assessment Jackie is having R hand stiffness, edema and pain that limits her ability to use R hand after her DIP FX of R MF. She would medically benefit from further OT to modify the splint and ex from PROM to ARM to strengthening as she progresses. Occupational Therapy Treatment Plan - OP Potential Rehabilitation Potential Excellent Set Goals Goals Set with Patient Yes Goals Goals In 8 weeks, pt will demonstrate:? 1) Decreased pn to <2/10 80% of the time with sustained gripping, carrying groceries, reading books and use of kitchen tools. 2) I HEP for stretching, gradual strengthening and self mgmt strategies. 3) improved R record searcher strength to 40# and 3 pt pinch to 12# with R middle finger pain < 1/ 10. 4)??Pt to be fit with functional bracing (for R palmar to MF/RF.) and use adaptive strategies to protect joint integrity to support less pain with ADL. Treatment Plan Treatment Plan Evaluation,Edema Control,Joint Mobilization,Manual Therapy, Splinting,Therapeutic Exercise ,Self Care/Home Management Expected Duration 4-6 Weeks Home Program Home Program Home Program Initiated Home Program Specifics Contrast baths, compression digit and palm wrist sleeves, elevation, edema self massage. Gentle passive ROM into composite flexion of un affected digits and AROM to MCP and PIP of MF, reverse blocking of MCP's and digit extension. 5-10 reps 3-x/day . Certification Certification Statement I Certify That: Therapy Services Provided, Therapy Plan Established, Therapy Plan Reviewed Certification Information Clinic ID # [id number] Initial Certification Date 04/07/24 Recertification Due Date 07/06/24 Provider Signature Required Yes Provider Signature Shows Agreement With POC & Medical Necessity Physician NPI Number Write NPI# Here Physician Comment/Change Comment or Changes Physician Signature & Date Requested Please Sign/Date Here
== END 2024-08-05 23:59 | disposition home or self-care (01) ==
PROVIDERS: PCP Orthopaedic Surgery Sports Medicine; Visit Provider Orthopaedic Surgery Sports Medicine
DX: S62.632A Displaced fracture of distal phalanx of right middle finger, initial encounter for closed fracture (principal); M79.644 Pain in right finger(s); R60.9 Edema, unspecified; Z51.89 Encounter for other specified aftercare
CPT/HCPCS: 97165; 97535